=== PATIENT | female | born 2000 | race Caucasian/White ===

== ENCOUNTER 2022-04-04 21:49 | Emergency (ER) | payer MEDICAID, SELFPAY ==
[2022-04-04] MEDS ORDERED: Bicillin LA 1.2 MILLION UNITS/2 ML SYRINGE ONE (23:02)
== END 2022-04-04 23:11 | disposition home or self-care (01) ==
LOC: BURERS 21:49
DX: J02.9 Acute pharyngitis, unspecified (principal); R00.0 Tachycardia, unspecified
CPT/HCPCS: 96372; 99283; J0561